=== PATIENT | male | born 1985 | race Hispanic/Latino ===

== ENCOUNTER 2017-10-02 00:19 | Emergency (ER) | payer OTHER ==
[2017-10-02 00:19] VITALS: BMI 26.1
[2017-10-02 01:18] VITALS: PULSE 80; RESP 16; TEMP 98.9; O2SAT 99
== END 2017-10-02 01:45 | disposition left against medical advice (07) ==
LOC: H.ER 00:19
DX: Z02.89 Encounter for other administrative examinations (principal)